=== PATIENT | female | born 1950 | race Caucasian/White ===

== ENCOUNTER → 2016-04-17 | Outpatient (CLI) | payer MEDICARE, OTHER ==
--- NOTE | 2016-04-18 07:53 | REPMRS ---
Patient History The patient states she has not had a clinical breast exam in over a year. Family history of colorectal cancer in father at age 63 and colorectal cancer in maternal uncle at age 74. Took hormonal contraceptives for 6 months. Digital Mammo Screening Bilat: April 17, 2016 - Exam #: [id number] Bilateral CC and MLO view(s) were taken. Technologist: Vanessa Herbert, Technologist Prior study comparison: March 27, 2015, digital bilateral screening mammo, performed at [facility]. January 17, 2014, bilateral bilat screen digital mammo, performed at [facility] ([facility] FINDINGS: The breast tissue is almost entirely fat. There has been no change in the appearance of the mammogram from the prior studies. Only scant scattered fibroglandular elements are again seen. There is no interval development of dominant mass, areas of architectural distortion, or clustered microcalcification typical of malignancy. There is a benign appearing intramammary node in the upper outer quadrant of the left breast. Scattered lymph nodes are seen in the left axilla. No significant changes when compared with prior studies. ASSESSMENT: BI-RADS/ACR category 2 mammogram. Benign finding(s). Recommendation Routine screening mammogram in 1 year. A. Negative x-ray reports should not delay biopsy if a dominant or clinically suspicious mass is present. B. Four to eight percent of cancers are not identified by mammography. C. Adenosis and dense breast may obscure an underlying neoplasm.(for women over age 40). This mammogram was interpreted with the aid of an FDA-approved computer-aided dectection system. Electronically Signed By: Jonatan Alvarenga MD 04/18/16 [id number]
== END ==
LOC: M RAD 11:39
PROVIDERS: ATTEND Family Medicine
DX: Z12.31 Encounter for screening mammogram for malignant neoplasm of breast (principal)

== ENCOUNTER → 2017-06-16 | Outpatient (CLI) | payer MEDICARE, OTHER | LOC: M RAD 13:09 | DX: R92.2 Inconclusive mammogram (principal); N63.21 Unspecified lump in the left breast, upper outer quadrant | CPT/HCPCS: 77067 ==

== ENCOUNTER → 2017-07-02 | Outpatient (CLI) | payer MEDICARE, OTHER | LOC: M RAD 10:35 | DX: R92.8 Other abnormal and inconclusive findings on diagnostic imaging of breast (principal) | CPT/HCPCS: 77065 ==

== ENCOUNTER 2017-08-06 07:29 | Day surgery (SDC) | payer MEDICARE, OTHER ==
[2017-08-06] MEDS: LR 1,000 ML IV ×3 (07:45→20:30)
[2017-08-06] MEDS ORDERED: LIDOCAINE 1% MDV 20ML VIAL As Ordered (07:52)
[2017-08-06] MEDS: LIDOCAINE 5% (LIDODERM) PATCH TD (08:06)
[2017-08-06] MEDS ORDERED: PROPOFOL 200 MG/20 ML VIAL As Ordered (13:11)
[2017-08-06] MEDS ORDERED: dexameTHASONE 4 MG/ML 1ML VIAL (J1100) As Ordered (13:11)
[2017-08-06] MEDS ORDERED: LIDOCAINE 2% INJ 100 MG/5 ML SDV (FOR ANES.) As Ordered (13:11)
[2017-08-06] MEDS ORDERED: MIDAZOLAM INJ 2 MG/2 ML VIAL (J2250) As Ordered (13:11)
[2017-08-06] MEDS ORDERED: ROCURONIUM BROMIDE 50 MG/5 ML VIAL As Ordered (13:11)
[2017-08-06] MEDS ORDERED: fentaNYL 250 MCG/5 ML INJECTION (J3010) As Ordered (13:11)
[2017-08-06] MEDS ORDERED: METHYLENE BLUE 0.5% (5MG/ML) 10 ML AMP (PROVAYBLUE)(Q9968 PER 1MG) As Ordered (13:28)
[2017-08-06] MEDS ORDERED: BUPIVACAINE HCL 0.25% 10 ML VIAL As Ordered (13:29)
[2017-08-06] MEDS ORDERED: ePHEDrine SULFATE 25 MG/5 ML(5MG/ML) SYRINGE As Ordered (14:32)
[2017-08-06] MEDS ORDERED: GLYCOPYRROLATE INJ 0.2 MG/ML 2 ML VIAL As Ordered (15:09)
[2017-08-06] MEDS ORDERED: NEOSTIGMINE 10 MG/10 ML VIAL (J2710) As Ordered (15:09)
[2017-08-06] MEDS ORDERED: HYDROmorphone HCL 2 MG/ML 1ML VIAL (J1170) As Ordered (15:09)
[2017-08-06] MEDS ORDERED: KETOROLAC 60 MG/2 ML VIAL (J1885) As Ordered (15:09)
[2017-08-06] MEDS ORDERED: ONDANSETRON 4MG/2ML VIAL (J2405) As Ordered (15:12)
[2017-08-06] MEDS ORDERED: HYDROMORPHONE HCL 0.5 MG/ 0.5 ML SYRINGE (J1170 PER 1) IV (18:00)
[2017-08-06] MEDS ORDERED: fentaNYL 100 MCG/2 ML INJECTION (J3010) IV (18:00)
[2017-08-06] MEDS ORDERED: PERCOCET 5MG/325MG TAB PO (18:00)
[2017-08-06] MEDS: ONDANSETRON 4MG/2ML VIAL (J2405) IV (18:30)
[2017-08-06] MEDS ORDERED: METOCLOPRAMIDE INJ 10MG/2ML VIAL (J2765) IV (20:30)
[2017-08-06] MEDS ORDERED: ONDANSETRON 4MG/2ML VIAL (J2405) IV (20:30)
[2017-08-06] MEDS: NORCO, ANEXSIA 5/325MG TABLET (HYDROcodone/ACETAMINOPHEN) PO (22:08)
[2017-08-06] MEDS: FAMOTIDINE 20 MG TAB PO (22:09)
[2017-08-06] MEDS: BISOPROLOL FUMARATE 5 MG TAB PO (22:09)
[2017-08-07] MEDS: LR 1,000 ML IV (06:30)
[2017-08-07] MEDS: ACETAMINOPHEN TAB 650MG DOSE (2X325MG) PO (09:13)
[2017-08-07] MEDS: FAMOTIDINE 20 MG TAB PO (09:13)
[2017-08-07] MEDS: LOSARTAN 50 MG TAB PO (09:14)
[2017-08-07] MEDS ORDERED: SIMVASTATIN 20 MG TAB PO (21:00)
== END 2017-08-07 14:15 | disposition home or self-care (01) ==
LOC: M SDC 07:29 → M MS5PR 20:45
DX: C50.412 Malignant neoplasm of upper-outer quadrant of left female breast (principal); I10 Essential (primary) hypertension; E78.5 Hyperlipidemia, unspecified; K21.9 Gastro-esophageal reflux disease without esophagitis; Z85.51 Personal history of malignant neoplasm of bladder; Z79.899 Other long term (current) drug therapy
CPT/HCPCS: 19125

== ENCOUNTER → 2017-09-20 | Outpatient (REF) | payer MEDICARE, OTHER | LOC: M SFHCLERA 11:12 | DX: T81.89XA Other complications of procedures, not elsewhere classified, initial encounter (principal) | CPT/HCPCS: 87070; 87077; 87186 ==

== ENCOUNTER → 2017-10-06 | Outpatient (CLI) | payer MEDICARE, OTHER | LOC: M ONCR 11:12 | DX: C50.912 Malignant neoplasm of unspecified site of left female breast (principal) | CPT/HCPCS: G0463 ==

== ENCOUNTER 2017-10-21 10:07 | Outpatient (RCR) | payer MEDICARE, OTHER | END 2017-10-23 | LOC: M ONCR 10:07 | DX: C50.412 Malignant neoplasm of upper-outer quadrant of left female breast (principal) | CPT/HCPCS: 77334 ==

== ENCOUNTER 2017-10-30 12:00 | Outpatient (RCR) | payer MEDICARE, OTHER | END 2017-11-22 | LOC: M ONCR 12:00 | DX: C50.412 Malignant neoplasm of upper-outer quadrant of left female breast (principal) | CPT/HCPCS: 77300 ==

== ENCOUNTER 2017-12-18 07:30 | Outpatient (RCR) | payer MEDICARE, OTHER ==
--- NOTE | 2017-11-24 08:44 | RADONC ---
RADIATION ONCOLOGY DATE: 11/24/2017 CHART NUMBER: [id number] Ms. Contreras is presently at a dose of 2520 cGy to her left breast and is tolerating treatments quite well at this point with no complaints related to radiation therapy. She is having no breast or bone pain. The patient's review of systems is noncontributory. Denies nausea, vomiting, fevers, chills, night sweats, diplopia, headaches, anxiety or depression, anorexia, weight loss, visual disturbances, chest pain, urinary or bowel difficulties, bone pain, or neurological problems. PHYSICAL EXAMINATION: The patient's skin is in good condition with no evidence of moist or dry desquamation. The remainder of her physical exam remains unchanged. ASSESSMENT: Ms. Contreras is tolerating her treatments quite well and radiation will continue as scheduled.
--- NOTE | 2017-12-02 09:36 | RADONC ---
RADIATION ONCOLOGY PROGRESS NOTE DATE: 11/30/2017 CHART #: [id number] Ms. Contreras is presently at a dose of 3420 cGy to her left breast and is tolerating treatments quite well at this point with no significant difficulty related to her radiation therapy other than some skin reaction in the inframammary region. She is using Silvadene on this. REVIEW OF SYSTEMS: The patient's review of systems is positive for some skin discomfort but is otherwise noncontributory. Denies nausea, vomiting, fevers, chills, night sweats, diplopia, headaches, anxiety or depression, anorexia, weight loss, visual disturbances, chest pain, urinary or bowel difficulties, bone pain, or neurological problems. PHYSICAL EXAMINATION: The patient's skin overall is in generally good condition except for a small area of moist desquamation in the inframammary region. The remainder of her physical exam remains unchanged. Ms. Contreras is tolerating treatments quite well and radiation will continue as scheduled.
--- NOTE | 2017-12-05 09:30 | RADONC ---
RADIATION ONCOLOGY SIMULATION NOTE DATE: 12/04/2017 CHART NUMBER: [id number] Ms. Contreras was taken to the linear accelerator today for clinical setup of her left breast primary site electron boost field. Setup was accomplished without difficulty or discomfort. Radiation treatment planning is underway, and radiation treatments will begin subsequently. An immobilization device was created and will be used throughout the course of treatment. I was physically present throughout the course of clinical simulation.
--- NOTE | 2017-12-08 08:13 | RADONC ---
RADIATION ONCOLOGY PROGRESS NOTE DATE: 12/07/2017 CHART NUMBER: [id number] Ms. Contreras is presently a dose of 4320 cGy to her left breast and is tolerating treatments quite well at this point with no complaints related to her radiation therapy other than some tenderness of the skin in the inframammary region. REVIEW OF SYSTEMS: The patient's review of systems is noncontributory. She denies nausea, vomiting, fevers, chills, night sweats, diplopia, headaches, anxiety or depression, anorexia, weight loss, visual disturbances, chest pain, urinary or bowel difficulties, bone pain, or neurological problems. PHYSICAL EXAMINATION: The patient's skin is generally in good condition with tanning and erythema present. There are very small areas of some moist desquamation in the inframammary region. The patient is using Silvadene. The remainder of her physical exam remains unchanged. Ms. Contreras is tolerating treatments quite well and radiation will continue as scheduled.
--- NOTE | 2017-12-15 10:12 | RADONC ---
RADIATION ONCOLOGY PROGRESS NOTE DATE: 12/14/2017 CHART #: [id number] Ms. Contreras is presently at a dose of 5260 cGy to her left breast primary site boost area. She is tolerating treatments quite well at this point with no significant difficulties related to her radiation therapy other than skin tenderness. REVIEW OF SYSTEMS: The patient's review of systems is positive for skin tenderness but is otherwise noncontributory. Denies nausea, vomiting, fevers, chills, night sweats, diplopia, headaches, anxiety or depression, anorexia, weight loss, visual disturbances, chest pain, urinary or bowel difficulties, bone pain, or neurological problems. PHYSICAL EXAMINATION: The patient's skin shows brisk erythema and tanning present, but overall is in generally good condition. The remainder of her physical exam remains unchanged. Ms. Contreras is tolerating treatments quite well and radiation will continue as scheduled. She is using Silvadene for her skin reaction.
[~2017-12-18 07:30] MED LIST: BISO5TAB2 PO; LOSA-4 PO; NORC1TAB4 PO; RANI150T PO; RANI1SYP PO; SILV40CR EXT; SIMV20TA2 PO; VITA100066 PO
--- NOTE | 2017-12-19 10:29 | RADONC ---
RADIATION ONCOLOGY TREATMENT SUMMARY DATE: 12/18/2017 CHART #: [id number] DIAGNOSIS: Left breast cancer. STAGE: I B, [id number], ER negative, ME negative, HER2 negative, grade 3. ECOG PERFORMANCE STATUS: 0. TREATMENT SUMMARY: Ms. 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 We treated the patient to the left breast for a total dose of 4860 cGy delivered in 27 fractions of 180 cGy each over 36 elapsed days from 11/04/2017 through 12/10/2017. The patient's left breast was treated on a linear accelerator utilizing a combination of 8 X and 16 X photons via medial and lateral tangential king with 3-D conformal technique. Following completion of 4860 cGy, the primary site was boosted for an additional 1200 cGy delivered in six fractions of 200 cGy each from 12/11/2017 through 12/18/2017. The primary site boost was treated on a linear accelerator utilizing a 12 MEV electron beam prescribed to the 90% isodose line via a non phos technique. This brought the primary site to a total dose of 6060 cGy delivered in 33 fractions over 44 elapsed days from 12/01/2017 to 12/18/2017. Ms. Contreras tolerated her treatments quite well with no difficulties related to her radiation therapy. The patient is scheduled to see me again in 1 month for further followup. She will also continue to be followed by her other physicians as well. cc: MD Oswaldo Galindo MD Karen Williams, MD
== END 2017-12-23 ==
LOC: M ONCR 07:30
PROVIDERS: ATTEND Radiology Radiation Oncology
DX: C50.412 Malignant neoplasm of upper-outer quadrant of left female breast (principal)

== ENCOUNTER → 2018-01-20 | Outpatient (CLI) | payer MEDICARE, OTHER | LOC: M ONCR 09:08 | DX: Z85.3 Personal history of malignant neoplasm of breast (principal) | CPT/HCPCS: G0463 ==

== ENCOUNTER → 2018-07-21 | Outpatient (CLI) | payer MEDICARE, OTHER ==
[~2018-07-21] MED LIST changes: +LISI-538 PO; -LOSA-4 PO; +LOSA100T50 PO; -NORC1TAB4 PO; +NORC1TAB7 PO
--- NOTE | 2018-07-22 07:30 | RADONC ---
RADIATION ONCOLOGY DATE: 07/21/2018 CHART NUMBER: [id number] DIAGNOSIS: Left breast cancer. STAGE: I B, T1c N0M0, ER, negative, VT negative, HER2/jose negative, grade 3. ECOG PERFORMANCE STATUS: 0 Ms. 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 The patient presents today reporting that she is doing quite well with no complaints at this time related to her radiation therapy or disease other than some tenderness of the breast. REVIEW OF SYSTEMS: The patient's review of systems is positive for breast tenderness but is otherwise noncontributory. She denies nausea, vomiting, fevers, chills, night sweats, diplopia, headaches, anxiety or depression, anorexia, weight loss, visual disturbances, chest pain, urinary or bowel difficulties, bone pain, or neurological problems. PHYSICAL EXAMINATION: The patient is a well-developed, well-nourished female in no acute distress. HEENT exam is normocephalic, atraumatic. Extraocular movements are intact. There is no palpable cervical, supraclavicular, infraclavicular, axillary, or inguinal lymphadenopathy present. Lungs are clear to auscultation and percussion. Heart has a regular rate and rhythm. Abdomen is benign with no hepatosplenomegaly, masses, or tenderness. Breast examination reveals no masses or discharge bilaterally. Skeletal examination reveals no tenderness to pressure or percussion of the bony skeleton. Extremities reveal no clubbing, cyanosis, or edema. Neurologic exam is grossly intact, as is the remainder of the physical examination. ASSESSMENT: The patient is clinically ARNOLDO at this time. She reports that she is being seen by her medical oncologist every 6 months and is due again in 5 months. I have therefore set her up for followup in our office in eight months' time so that we can alternate followup visits. cc: MD Oswaldo Galindo MD Karen Williams, MD
== END ==
LOC: M ONCR 09:07
PROVIDERS: ATTEND Radiology Radiation Oncology
DX: C50.412 Malignant neoplasm of upper-outer quadrant of left female breast (principal)

== ENCOUNTER → 2019-04-06 | Outpatient (CLI) | payer MEDICARE, OTHER ==
[~2019-04-06] MED LIST changes: +PEPC10TA6 PO; -SIMV20TA2 PO; +SIMV20TA22 PO
--- NOTE | 2019-04-06 14:23 | RADONC ---
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 TREATMENT HISTORY: Patient had a lumpectomy on 08/06/2017, adjuvant radiation therapy completed 12/19/2017. INTERVAL HISTORY: She has been followed by medical oncologist every 4 months and she had bilateral followup mammogram on 12/06/2018 and it reported no evidence of malignancy in the left breast, bilateral diagnostic mammogram is recommended in six months, which was informed to the patient. REVIEW OF SYSTEMS: Constitutional: She denies fever, chills, sweats, fatigue or recent weight changes. HEENT: There is no hearing problems. No visual problems. Respiratory: Denies cough, wheezing, hemoptysis. Cardiovascular: Denies chest pain, palpitations. Musculoskeletal: Denies any bone pain, joint pain. Genitourinary: Denies urinary frequency, dysuria or vaginal discharge. Gastrointestinal: Denies nausea, vomiting, constipation, diarrhea or gastroesophageal reflux disease. Skin: Denies rashes, ecchymoses, petechiae. Neurological: Denies headache or weakness. PHYSICAL EXAMINATION: The patient appeared to be in good general condition, not in apparent distress. Respiratory: Lungs are clear to auscultation. No wheezes or rales. Cardiac: Regular rhythm and rate. Abdomen: Obese. Soft. Nontender. Nondistended. Without any palpable mass or organomegaly. Extremities: Without any edema. HEENT: There is no palpable lymphadenopathy in the neck or axilla bilaterally. Breast Exam: Both breasts are equal in size, pendulous. There is mild hyperpigmentation on the left side. There is no swelling of the arms. 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 She is on surveillance. Last mammography was in November 2018 which was negative. . PLAN: Continue followup care with the physicians involved and she was also asked to return here in 8 months for followup. POONAM
== END ==
LOC: M ONCR 08:55
PROVIDERS: ATTEND Radiology Radiation Oncology
DX: C50.412 Malignant neoplasm of upper-outer quadrant of left female breast (principal)

== ENCOUNTER → 2019-07-01 | Outpatient (CLI) | payer MEDICARE, OTHER ==
[~2019-07-01] MED LIST changes: +ISOVUE-370 76% 100ML VIAL As Ordered ONE
== END ==
LOC: M RAD 14:11
PROVIDERS: ATTEND Nurse Practitioner Family
DX: Z53.9 Procedure and treatment not carried out, unspecified reason (principal)

== ENCOUNTER → 2019-07-04 | Outpatient (CLI) | payer MEDICARE, OTHER ==
--- NOTE | 2019-07-04 10:22 | REP ---
REASON: History of lung cancer. COMPARISON: None. CONTRAST: 100 mL Isovue 370. There is mediastinal and right hilar adenopathy. There are no pleural or pericardial effusions. The imaged upper abdomen and imaged osseous structures are within normal limits. Evaluation of the lung king shows innumerable pulmonary nodules and two lung masses. The right upper lobe mass measures 3.1 x 1.8 cm. The right middle lobe mass measures 5.3 x 3.1 cm. There is a right lower lobe nodule which measures 8 mm, which is the largest in the right lower lobe. The largest nodule in the left lower lobe measures 2.7 x 2.9 cm. The largest nodule in the lingula measures 2 x 1.7 cm and there are no significant left upper lobe nodules. Scattered 3 and 4 mm sized nodules are seen in the left upper lobe. IMPRESSION: 1. Adenopathy as described above. 2. Lung nodules and lung masses as described above consistent with malignancy. Electronically Signed by Quinn Zayas DO 07/04/2019 10:33 A
== END ==
LOC: M RAD 08:15
PROVIDERS: ATTEND Nurse Practitioner Family
DX: C34.92 Malignant neoplasm of unspecified part of left bronchus or lung (principal)
CPT/HCPCS: 71260; Q9967

== ENCOUNTER → 2019-07-19 | Outpatient (CLI) | payer MEDICARE, OTHER ==
[~2019-07-19] MED LIST changes: -ISOVUE-370 76% 100ML VIAL As Ordered ONE
--- NOTE | 2019-07-19 17:32 | REP ---
PET/CT: HISTORY: Left upper outer quadrant breast cancer. Staging. COMPARISONS: Comparison CT study of the chest, July 04, 2019. TECHNIQUE: 51 minutes following the intravenous injection of a 8.68 mCi dose of F-18 FDG, three-dimensional PET scintigraphy is acquired from the skull base to the proximal thighs. Triplanar noncontrast CT scanning is acquired through the same anatomic range for attenuation correction, and image registration with scan parameters optimized to minimize radiation exposure to the patient. PET scintigraphy and CT datasets were fused and displayed on a workstation with multiplanar and projection display capability. PET/CT FINDINGS: There is asymmetric slightly increased uptake in the right side of the thyroid gland, maximum SUV value 4.30. There is a small lytic metastasis in the body of the scapula on the left with maximum standard uptake value measured at 7.71. There is hypermetabolic uptake in most of the larger pulmonary metastatic nodules seen. Maximum standard uptake value ranging from 6.0 to 9.56. There is hypermetabolic elif uptake in the right hilus, maximum standard uptake value 9.37. In the abdomen and pelvis, there is a focus of elif uptake mild in degree in the left celiac axis region with maximum standard uptake value 5.34. No other abnormal abdominal or pelvic hypermetabolic uptake is seen. No other abnormal skeletal uptake is appreciated. There is a complex cystic mass in the right adnexa measuring 5.7 cm in greatest diameter containing a well-defined calcification. There is no abnormal uptake associated with this lesion on PET scintigraphy. This is most compatible with a right ovarian dermoid cyst. IMPRESSION: Hypermetabolic uptake seen in most of the larger pulmonary metastatic lesions as well as in right paratracheal and right hilar adenopathy. There is one skeletal metastatic site in the body of the scapula on the left. There is mildly increased uptake in left celiac axis adenopathy in the upper abdomen. Electronically Signed by Wil Back MD 07/19/2019 06:02 P
== END ==
LOC: M PLARAD 10:24
PROVIDERS: ATTEND Internal Medicine Medical Oncology
DX: C50.412 Malignant neoplasm of upper-outer quadrant of left female breast (principal); C79.51 Secondary malignant neoplasm of bone; C78.00 Secondary malignant neoplasm of unspecified lung; R59.0 Localized enlarged lymph nodes
CPT/HCPCS: 78815; A9552

== ENCOUNTER → 2019-07-26 | Outpatient (CLI) | payer MEDICARE, OTHER ==
[~2019-07-26] MED LIST changes: +GASTROGRAFIN SOLUTION 30ML (Q9963) As Ordered ONE; +ISOVUE-370 76% 100ML VIAL As Ordered ONE; +VITAD1000T PO
--- NOTE | 2019-07-26 14:36 | REP ---
REASON: Breast cancer. The latest prior for comparison is CT obtained as part of a PET/CT on 07/19/2019. There are no other priors for comparison. CONTRAST: 100 mL Isovue 370. The lung bases are unchanged from 07/19/2019. There are multiple nodules and masses status quo. No pleural or pericardial effusions have developed. The liver, gallbladder, spleen, pancreas, adrenal glands, kidneys are within normal limits. The abdominal aorta and para-aortic regions are within normal limits. The bowel loops and their mesenteries are again seen to be within normal limits. There is no intra-abdominal mass or adenopathy. There is no free fluid or free air. CT PELVIS: The complex cystic structure seen in the right adnexa on the prior examination measuring 5.7 cm is unchanged. The pelvic bowel loops and their mesenteries are essentially unchanged. There is sigmoid colon diverticulosis. There is no free fluid or free air. No pelvic sidewall adenopathy has developed. There is no inguinal adenopathy. Bone window technique through the examination shows no significant change in the appearance of the osseous structures. IMPRESSION: 1. Pulmonary metastatic disease previously described. 2. Unchanged right adnexal cystic mass. 3. Sigmoid colon diverticulosis. Electronically Signed by Quinn Zayas DO 07/26/2019 03:13 P
--- NOTE | 2019-07-26 17:05 | REP ---
REASON: Carcinoma of the breast. PRIORS: None. After the intravenous administration of 22.0 mCi of technetium 99m MDP, a total body bone scan was obtained. There is a degenerative-type uptake pattern seen in the shoulders, manubriosternal joints, sternoclavicular joints, knees, ankles, feet, and sacroiliac joints. IMPRESSION: Degenerative-type uptake pattern seen in the axial and appendicular skeleton, as described above. There is no compelling evidence of metastatic disease. Electronically Signed by Quinn Zayas DO 07/27/2019 11:19 A
--- NOTE | 2019-07-28 13:33 | REPVR ---
PROCEDURE INFORMATION: Exam: CT Head Without And With Contrast Exam date and time: 07/26/2019 11:19 AM Age: 69 years old Clinical indication: Condition or disease; History of cancer (specify primary cancer site): ; Primary cancer: Breast; Additional info: Breast CA, new mets restaging, nuc med also TECHNIQUE: Imaging protocol: Computed tomography of the head without and with intravenous contrast. Radiation optimization: All CT scans at this facility use at least one of these dose optimization techniques: automated exposure control; mA and/or kV adjustment per patient size (includes targeted exams where dose is matched to clinical indication); or iterative reconstruction. Contrast material: ISOVUE 370; Contrast volume: 100 ml; Contrast route: IV; COMPARISON: No relevant prior studies available. FINDINGS: Brain: There is low attenuation abnormality in the periventricular white matter, likely reflecting chronic microvascular ischemic disease. Ventricles: Normal. No ventriculomegaly. Bones/joints: Unremarkable. No acute fracture. Sinuses: Visualized sinuses are unremarkable. No fluid levels. Mastoid air cells: Visualized mastoid air cells are well aerated. Soft tissues: Unremarkable. Other findings: There is no abnormal enhancement. IMPRESSION: No acute intracranial findings identified. Please refer to incidental findings in body of report. Electronically signed by: Richy Grant On 07/28/2019 13:33:21 PM
== END ==
LOC: M RAD 09:08
PROVIDERS: ATTEND Internal Medicine Medical Oncology
DX: C50.919 Malignant neoplasm of unspecified site of unspecified female breast (principal); C78.00 Secondary malignant neoplasm of unspecified lung
CPT/HCPCS: 70470; 74177; 78306; A9503; Q9963; Q9967

== ENCOUNTER → 2019-07-27 | Outpatient (CLI) | payer MEDICARE, OTHER ==
[~2019-07-27] MED LIST changes: -GASTROGRAFIN SOLUTION 30ML (Q9963) As Ordered ONE; -ISOVUE-370 76% 100ML VIAL As Ordered ONE; +LIDOCAINE 1% MDV 20ML VIAL As Ordered ONE
[2019-07-27 11:00] VITALS: BP 177/82
--- NOTE | 2019-07-27 12:15 | REP ---
CHEST, SINGLE VIEW: Single view of the chest is performed status post left lung biopsy. No pneumothorax is seen. Bilateral masses are again seen. IMPRESSION: No pneumothorax, status post left lung biopsy. Electronically Signed by Vinny Carson MD 07/27/2019 01:00 P
--- NOTE | 2019-07-28 19:07 | REP ---
CT-GUIDED LEFT LOWER LOBE LUNG BIOPSY The procedure was performed under the direct supervision of Dr. Carson. Patient has a history of A 2.7 x 2.9 cm nodule in the left lower lobe seen on a previous CT scan dated 07/04/2019. The risks and benefits of the procedure were explained to the patient and informed consent was obtained. The left lower lobe pulmonary nodule was localized using CT guidance. The skin was prepped and draped in a sterile fashion. 1% lidocaine was used as a local anesthetic. Using CT guidance a 19/20 gauge coaxial needle biopsy system was inserted and advanced into the nodule. Five core biopsy samples were obtained and sent to lab. The patient tolerated the procedure well and there were no immediate complications. After the appropriate amount of monitored convalescence the patient was discharged from the department. Electronically Signed by RAJANI Delarosa 07/27/2019 03:08 P Electronically Signed by Vinny Carson MD 07/28/2019 06:59 P
== END ==
LOC: M IRPRO 07:57
PROVIDERS: ATTEND Internal Medicine Medical Oncology
DX: C78.02 Secondary malignant neoplasm of left lung (principal); Z85.3 Personal history of malignant neoplasm of breast

== ENCOUNTER → 2019-09-01 | Outpatient (CLI) | payer MEDICARE, OTHER ==
[~2019-09-01] MED LIST changes: +D31000TA2 PO; -LIDOCAINE 1% MDV 20ML VIAL As Ordered ONE; -VITAD1000T PO
--- NOTE | 2019-09-02 09:27 | REP ---
THYROID ULTRASOUND: Real-time sonographic evaluation of the thyroid is performed. Echotexture is diffusely heterogeneous. Right lobe measures 4.2 x 2.1 x 2.3 cm and left lobe 4.2 x 1.3 x 1.3 cm. There are multiple cystic and solid nodules bilaterally. In the right lower pole, there are two solid nodules containing punctate echogenic foci, measuring 8 x 8 x 9 mm and 9 x 6 x 6 mm. An isoechoic solid nodule in the mid right lobe measures 1.8 x 1.6 x 1.5 cm. Complex cystic and solid nodule in the right lower pole measures 1.2 x 0.5 x 0.7 cm. There are a few scattered subcentimeter cysts. In the left lobe, a solid nodule in the upper pole measures 8 x 4 x 5 mm and in the mid aspect 1.2 x 0.7 x 0.7 cm. Probable complex cyst in the left upper pole measures 5 mm and in the left lower pole measures 3 mm. IMPRESSION: Multiple cystic and solid nodules as discussed above. According to TIRADS criteria, there is no suspicious nodule for fine needle aspiration. However, followup is recommended in 6 months Electronically Signed by Vinny Carson MD 09/04/2019 10:54 P
== END ==
LOC: M LRY 08:54
PROVIDERS: ATTEND Internal Medicine Medical Oncology
DX: E07.9 Disorder of thyroid, unspecified (principal); Z85.3 Personal history of malignant neoplasm of breast